=== PATIENT | male | born 1975 | race Caucasian/White ===

== ENCOUNTER 2019-01-10 16:19 | Inpatient (IN) | payer MEDICAID, OTHER ==
[~2019-01-10] VITALS: Ht 175.3 cm; Wt 83.5 kg
[~2019-01-10 16:19] MED LIST: FER325 PO; FOLI-49 PO; MULTI PO; THIA100T56 PO
[2019-01-10] MEDS ORDERED: LORAZEPAM 2 MG INJ IV STA (17:07)
[2019-01-10] MEDS ORDERED: SOD CHLORIDE 0.9% 1,000 ML IV STA (17:07)
[2019-01-10] MEDS: POTASSIUM CHLORIDE 100 ML IVPB SCH ×2 (18:56→20:39)
[2019-01-10] MEDS ORDERED: LORAZEPAM 2 MG INJ IV ONE (19:00)
[2019-01-10] MEDS ORDERED: SOD CHLORIDE 0.9% 1,000 ML IV ONE (19:00)
[2019-01-10] MEDS ORDERED: ONDANSETRON 4 MG INJ IV PRN (20:30)
[2019-01-10] MEDS ORDERED: ACETAMINOPHEN 325 MG TAB PO PRN (20:30)
[2019-01-10 23:45] VITALS: Ht 175.3 cm; Wt 83.5 kg
[2019-01-11] MEDS ORDERED: ONDANSETRON 4 MG INJ IV PRN (02:00)
[2019-01-11] MEDS ORDERED: ACETAMINOPHEN 325 MG TAB PO PRN (02:00)
[2019-01-11] MEDS ORDERED: LORAZEPAM 0.5 MG TAB PO PRN (02:00)
[2019-01-11] MEDS ORDERED: LORAZEPAM 2 MG INJ IV PRN (02:00)
[2019-01-11] MEDS ORDERED: NACL 0.9% 3 ML SYG IV SCH (02:00)
[2019-01-11] MEDS: SOD CHLORIDE 0.9% 1,000 ML IV SCH ×2 (02:43→11:46)
[2019-01-11 04:00] VITALS: BP 120/79; PULSE 63; RESP 18
[2019-01-11] MEDS: PANTOPRAZOLE (EC) 40 MG TAB PO SCH (06:33)
[2019-01-11 07:58] VITALS: BP 124/79; PULSE 101; RESP 18
[2019-01-11] MEDS: LEVETIRACETAM 750 MG TAB PO SCH ×2 (10:00→21:12)
[2019-01-11] MEDS: MULTIVITAMINS 10 ML, THIAMINE 100 MG, FOLIC ACID 1 MG in SOD CHLORIDE 0.9% 1,000 ML IVPB SCH (10:01)
[2019-01-11 11:32] VITALS: BP 121/77; PULSE 101; RESP 18
[2019-01-11] MEDS ORDERED: SOD CHLORIDE 0.9% 250 ML IV* ONE (13:57)
[2019-01-11 15:27] VITALS: BP 125/63; PULSE 89; RESP 18
[2019-01-11 20:00] VITALS: BP 116/78; PULSE 106; RESP 20
[2019-01-12] VITALS: BP 128/80; PULSE 98; RESP 20
[2019-01-12] MEDS: SOD CHLORIDE 0.9% 1,000 ML IV SCH ×3 (00:57→16:58)
[2019-01-12 04:00] VITALS: BP 120/81; PULSE 102; RESP 20
[2019-01-12] MEDS: PANTOPRAZOLE (EC) 40 MG TAB PO SCH (06:14)
[2019-01-12 07:31] VITALS: BP 122/77; PULSE 82; RESP 20
[2019-01-12] MEDS: LEVETIRACETAM 750 MG TAB PO SCH ×2 (08:29→19:59)
[2019-01-12] MEDS: MULTIVITAMINS 10 ML, THIAMINE 100 MG, FOLIC ACID 1 MG in SOD CHLORIDE 0.9% 1,000 ML IVPB SCH (08:29)
[2019-01-12 10:56] VITALS: BP 120/67; PULSE 112; RESP 18
[2019-01-12] MEDS ORDERED: SOD FERRIC GLUC COMPLX 125 MG in SOD CHLORIDE 0.9% 100 ML IVPB SCH (13:00)
[2019-01-12 15:56] VITALS: BP 128/65; PULSE 111; RESP 20
[2019-01-12 20:00] VITALS: BP 128/73; PULSE 109; RESP 18
[2019-01-13] VITALS: BP 126/52; PULSE 110; RESP 19
[2019-01-13 04:00] VITALS: BP 132/84; PULSE 116; RESP 19
[2019-01-13] MEDS: PANTOPRAZOLE (EC) 40 MG TAB PO SCH (05:45)
[2019-01-13 07:43] VITALS: BP 129/86; PULSE 100; RESP 20
[2019-01-13] MEDS: MULTIVITAMINS 10 ML, THIAMINE 100 MG, FOLIC ACID 1 MG in SOD CHLORIDE 0.9% 1,000 ML IVPB SCH (08:00)
[2019-01-13] MEDS: LEVETIRACETAM 750 MG TAB PO SCH (08:00)
[2019-01-13] MEDS ORDERED: POTASSIUM CHLORIDE (SR) 20 MEQ TAB PO STA (10:29)
[2019-01-13 11:02] VITALS: BP 140/82; PULSE 105; RESP 20
[2019-01-14] MEDS ORDERED: FOLIC ACID 1 MG TAB PO SCH (09:00)
[2019-01-14] MEDS ORDERED: THIAMINE 100 MG TAB PO SCH (09:00)
[2019-01-14] MEDS ORDERED: MULTIVITAMINS THERAPEUTIC TAB PO SCH (09:00)
== END 2019-01-13 12:54 | disposition home or self-care (01) | DRG 897 ==
LOC: E/R 16:19 → TEL 20:31
PROVIDERS: ADMIT Internal Medicine; ATTEND Internal Medicine
PROC: 30233N1 Transfusion of Nonautologous Red Blood Cells into Peripheral Vein, Percutaneous Approach (ICD-10-PCS; principal; 2019-01-11)
DX: F10.288 Alcohol dependence with other alcohol-induced disorder (principal); G40.89 Other seizures; R17 Unspecified jaundice; E87.2 Acidosis; F10.239 Alcohol dependence with withdrawal, unspecified; D50.9 Iron deficiency anemia, unspecified; E87.6 Hypokalemia
CPT/HCPCS: 36430; 70450; 70551; 76700; 80048; 80053; 80307; 81001; 82270; 82607; 82728; 82746; 82962; 83540; 83605; 83735; 84100; 84443; 85025; 86850; 86900; 86901; 86920; 93005; 95819; 96374; 96375; 96376; J2060; J2916; J3411; J3480; J7030; J7040; P9016